=== PATIENT | female | born 1955 | race Caucasian/White ===

== ENCOUNTER → 2016-04-03 | Outpatient (CLI) | payer BC ==
[~2016-04-03] MED LIST: ACET-1256 PO; CRAN1CAP15 PO; METR0.7527 EXT; SUMA50TA15 PO; [UNRECOGNIZED DRUG - CODE] EXT; [UNRECOGNIZED DRUG - CODE] EXT
== END | disposition home or self-care (01) ==
LOC: C.PAPS 14:04
PROVIDERS: ATTEND Obstetrics & Gynecology
DX: Z01.419 Encounter for gynecological examination (general) (routine) without abnormal findings (principal)

== ENCOUNTER → 2016-10-22 | Outpatient (CLI) | payer BC ==
--- NOTE | 2016-10-22 12:44 | MAMMOGRAPHY REPORT ---
BILATERAL DIGITAL SCREENING MAMMOGRAM WITH CAD: 10/22/2016 CLINICAL HISTORY: Routine screening. Patient has no complaints. TECHNIQUE: Bilateral CC and MLO views were obtained. Current study was also evaluated with a Comput er Aided Detection (CAD) system. COMPARISON: Comparison is made to exams dated: 10/17/2015 mammogram, 10/12/2014 mammogram, 10/11/2013 m ammogram, 10/08/2012 mammogram, 02/24/2011 mammogram, and 08/14/2010 mammogram - [facility]. BREAST COMPOSITION: The tissue of both breasts is heterogeneously dense, which may obscure small mas ses. FINDINGS: There are a few stable benign-appearing punctate microcalcifications in the right breast. No new suspicious mass, architectural distortion or cluster of new, suspicious microcalcifications is seen. IMPRESSION: ACR BI-RADS CATEGORY 1: NEGATIVE There is no mammographic evidence of malignancy. A 1 year screening mammogram is recommended. The pa tient will receive written notification of the results. Approximately 10% of breast cancers are not detected with mammography. A negative mammographic report should not delay biopsy if a clinically suggestive mass is present. Lyn Britt M.D. ay/:10/22/2016 08:28:58 Boardmarker: Shamika VAZQUEZ(Michelle)(Russell)(BD), [facility] letter sent: Normal 1/2 BI-RADS Code: ACR BI-RADS Category 1: Negative
== END | disposition home or self-care (01) ==
LOC: C.MAMM 07:51
PROVIDERS: ATTEND Obstetrics & Gynecology
DX: Z12.31 Encounter for screening mammogram for malignant neoplasm of breast (principal)

== ENCOUNTER → 2017-10-27 | Outpatient (CLI) | payer BC ==
--- NOTE | 2017-10-27 15:21 | MAMMOGRAPHY REPORT ---
BILATERAL DIGITAL SCREENING MAMMOGRAM TOMOSYNTHESIS WITH CAD: 10/27/2017 CLINICAL HISTORY: Routine screening. Patient has no complaints. TECHNIQUE: The study was acquired using full field digital technology and interpreted from soft copy. Breast tomosynthesis in addition to standard 2D mammography was performed. Current study was also ev aluated with a Computer Aided Detection (CAD) system. COMPARISON: Comparison is made to exams dated: 10/22/2016 mammogram, 10/17/2015 mammogram, 10/12/2014 m ammogram, 10/11/2013 mammogram, and 10/08/2012 mammogram - [facility]. BREAST COMPOSITION: The tissue of both breasts is heterogeneously dense, which may obscure small mass es. FINDINGS: There is a possible small area of architectural distortion in the lateral, middle to anteri or right breast, best seen on the CC view (CC tomosynthesis slice 19/49), for which additional spot c ompression tomosynthesis views and possible ultrasound are recommended. No other suspicious mass, architectural distortion or cluster of microcalcifications is seen. IMPRESSION: ACR BI-RADS CATEGORY 0: INCOMPLETE EVALUATION: NEED ADDITIONAL IMAGING EVALUATION The possible small area of architectural distortion in the lateral right breast needs additional eval uation. The patient will be called to schedule an appointment. Some breast cancers are not detected with mammography. A negative mammographic report should not amaury y biopsy if a clinically suggestive mass is present. Lyn Britt M.D. ay/:10/27/2017 08:44:14 Commercial Drone Software Developer: RT Simon(R)(M), [facility] letter sent: Addl Imaging 0 BI-RADS Code: ACR BI-RADS Category 0: Incomplete Evaluation: Need Additional Imaging Evaluation
== END | disposition home or self-care (01) ==
LOC: C.MAMM 08:08
PROVIDERS: ATTEND Obstetrics & Gynecology
DX: Z12.31 Encounter for screening mammogram for malignant neoplasm of breast (principal); R92.8 Other abnormal and inconclusive findings on diagnostic imaging of breast

== ENCOUNTER → 2017-11-05 | Outpatient (CLI) | payer BC ==
--- NOTE | 2017-11-05 15:12 | MAMMOGRAPHY REPORT ---
UNILATERAL RIGHT DIGITAL DIAGNOSTIC MAMMOGRAM TOMOSYNTHESIS AND TARGETED RIGHT ULTRASOUND: 11/05/2017 CLINICAL HISTORY: Callback from screening mammogram for right breast architectural distortion. TECHNIQUE: The study was acquired using full field digital technology and interpreted from soft copy. Breast tomosynthesis in addition to standard 2D mammography was performed. Spot compression right C C and MLO 2D and tomosynthesis images were obtained. COMPARISON: Comparison is made to exams dated: 10/27/2017 mammogram, 10/22/2016 mammogram, 10/17/2015 m ammogram, 10/12/2014 mammogram, 10/11/2013 mammogram, and 10/08/2012 mammogram - [facility]. BREAST COMPOSITION: The tissue of right breast is heterogeneously dense, which may obscure small mass es. FINDINGS: Spot compression views demonstrate a small focal area of architectural distortion in the right upper outer quadrant, best seen on the tomosynthesis images. Targeted ultrasound was performed of the righ t upper outer quadrant in the region of the mammographic distortion. In the right 11:00 periareolar breast, there is a focal hypoechoic lesion with associated architectural distortion. The lesion is i ll-defined but measures approximately 2 x 4 x 4 mm. This corresponds with the mammographic data modeling architect ural distortion and is indeterminate, with differential including a radial scar or malignancy; a radi al scar is favored. Recommend ultrasound-guided core needle biopsy for further evaluation. IMPRESSION: ACR BI-RADS CATEGORY 4: SUSPICIOUS, ULTRASOUND ACR BI-RADS CATEGORY 4: SUSPICIOUS Persistent small focal area of architectural distortion in the right upper outer quadrant on the andrea tional mammographic views. A corresponding 4 mm hypoechoic lesion with associated architectural dist ortion is seen within the right 11:00 breast on ultrasound. The finding is indeterminate and ultraso und-guided core needle biopsy is recommended for further evaluation. This likely represents a radial scar although malignancy is also a consideration. A phone call was made to the physician's office to confirm faxed results were received. She tentativ rosaline scheduled the biopsy before leaving the department. Some breast cancers are not detected with mammography. A negative mammographic report should not amaury y biopsy if a clinically suggestive mass is present. Thi Figueredo M.D. /:11/05/2017 10:23:56 Slab Miller Operator: RT Chrystal(R)(M), [facility] letter sent: Abnormal / OVERALL STUDY BIRADS: 4 Suspicious abnormality
== END | disposition home or self-care (01) ==
LOC: C.MAMM 09:15
PROVIDERS: ATTEND Obstetrics & Gynecology
DX: R92.8 Other abnormal and inconclusive findings on diagnostic imaging of breast (principal)

== ENCOUNTER → 2017-11-13 | Outpatient (CLI) | payer BC ==
--- NOTE | 2017-11-13 10:59 | Discharge Instructions ---
Discharge Instructions Procedure Procedure Date: Nov 13, 2017. Reason for visit: Right Distortion. Discharge Discharge Date: Nov 13, 2017. Discharge Diagnosis: status post breast biopsy Instructions Activity Recommendations: Additional Limitations (see below) Return to School/Work: no limitations Recommended Home Diet: No Limitations Provider Instructions: ACTIVITY RECOMMENDATIONS: * No lifting, pushing, pulling or exercising the affected side for three days. RETURN TO SCHOOL/WORK: * You may return to work/school after the procedure, but do not perform any strenuous activities for 24 to 48 hours. MEDICATIONS: * Tylenol (two 325 mg) every four to six hours if needed for mild pain (if not allergic to Tylenol). DIET: * Resume previous diet. SPECIAL CARE INSTRUCTIONS: * Keep biopsy site dry for 24 hours. May shower after 24 hours, but do not soak (bathe) incision. * May remove Tegaderm (plastic patch) 24 hours after procedure * Leave the steri-strips on for one week. Allow the steri-strips to fall off by themselves. If not off after one week, you may remove them. You may place a Bandaid crosswise over the strips, if desired. * Apply ice 10 minutes on and 10 minutes off as needed. * Wear a bra at bedtime to sleep more comfortably for 2-3 days. * Your referring physician should have the results after approximately 5 to 7 business days. * Call for unusual bleeding, fever, drainage, etc or if you have any questions call during normal business hours or after hours call Dr Figueredo, . FOLLOW UP VISIT: Follow-up with Referring Physician as scheduled. Allergies Coded Allergies: Pseudoephedrine (Verified Allergy, Unknown, HEART PALPITATIONS, 07/13/15) Joe Patel Recommendations: Call your doctor if: * Temperature above 101 degrees * Pain not relieved by pain medicine ordered * There is increased drainage or redness from any incision * You have any unanswered questions or concerns. Your Doctors Instructions noted above were prepared by provider Thi Figueredo. Patient Signature Section: Patient Instructions Signature Page Aleena Aldana Patient (or Guardian) Signature/Date: I have read and understand the instructions given to me by my caregivers. Caregiver/RN/Doctor Signature/Date: The above-named patient and/or guardian has received patient instructions on this date. + Original Patient Signature Page (only) stays with chart. Please make copy for patient.
--- NOTE | 2017-11-13 15:41 | MAMMOGRAPHY REPORT ---
UNILATERAL RIGHT DIGITAL DIAGNOSTIC MAMMOGRAM TOMOSYNTHESIS: 11/13/2017 CLINICAL HISTORY: Status post right breast biopsy. TECHNIQUE: The study was acquired using full field digital technology and interpreted from soft copy. Breast tomosynthesis in addition to standard 2D mammography was performed. Postprocedural right CC and ML tomosynthesis images were obtained. COMPARISON: Comparison is made to exams dated: 11/05/2017 mammogram, 10/27/2017 mammogram, 10/22/2016 ma mmogram, 10/17/2015 mammogram, and 10/12/2014 mammogram - [facility]. BREAST COMPOSITION: The tissue of right breast is heterogeneously dense, which may obscure small mass es. FINDINGS: A new ribbon-shaped biopsy marker clip is seen at the site of the biopsied architectural di stortion in the right upper outer quadrant. No significant postbiopsy hematoma is seen. IMPRESSION: POST PROCEDURE IMAGING FOR MARKER PLACEMENT New biopsy clip status post right breast biopsy. Pathology results are pending. Some breast cancers are not detected with mammography. A negative mammographic report should not amaury y biopsy if a clinically suggestive mass is present. Thi Figueredo M.D. /:11/13/2017 11:06:29 Contract Attorney: Edita Ly, [facility] BI-RADS Code: Post Procedure Imaging For Marker Placement
--- NOTE | 2017-11-13 15:41 | MAMMOGRAPHY REPORT ---
ULTRASOUND GUIDED BIOPSY RIGHT BREAST: 11/13/2017 CLINICAL HISTORY: Architectural distortion in the right 11:00 breast. PATIENT CONSENT: The procedure, risks and benefits were discussed with the patient and informed writt en consent was obtained. A timeout was performed immediately prior to the procedure. PROCEDURE DESCRIPTION: With ultrasound guidance, aseptic technique, and lidocaine as the local anesth etic (1% lidocaine to anesthetize the skin and 1% lidocaine with epinephrine to anesthetize the deepe r tissues), the focal hypoechoic lesion with associated architectural distortion in the right 11:00 b reast was sampled 4 times with a 14-gauge Achieve biopsy needle. Immediately thereafter, with ultras ound guidance, a metallic localizer clip was placed at the biopsy site. Direct pressure was applied to the site immediately post procedure until hemostasis was achieved. Postprocedure unilateral mamm ograms were performed to confirm clip placement. Steri-Strips were placed over the site and covered with an Opsite patch. The patient tolerated the procedure without complication. She was given wound care instructions. The specimens were sent to pathology for analysis. COMPARISON: Comparison is made to exams dated: 11/05/2017 ultrasound, 11/05/2017 mammogram, 10/27/2017 ma mmogram, 10/22/2016 mammogram, 10/17/2015 mammogram, and 10/12/2014 mammogram - [facility] nter. IMPRESSION: ULTRASOUND GUIDED BIOPSY Ultrasound-guided core needle biopsy of the hypoechoic lesion and associated architectural distortion in the right 11:00 breast, with clip placement. The patient will receive pathology results from her referring provider. Thi Figueredo M.D. /:11/13/2017 11:00:33 Steel Pourer Helper: Edita Ly, [facility]
== END | disposition home or self-care (01) ==
LOC: C.MAMM 10:02
PROVIDERS: ATTEND Obstetrics & Gynecology
DX: N64.89 Other specified disorders of breast (principal); N60.81 Other benign mammary dysplasias of right breast